=== PATIENT | female | born 1995 | race Hispanic/Latino ===

== ENCOUNTER 2018-05-22 21:02 | Emergency (ER) | payer BC, MEDICAID ==
[2018-05-22] MEDS ORDERED: KETOROLAC TROMETHAMINE 60 MG/2 ML VIAL ONE (22:36)
[2018-05-22] MEDS ORDERED: PHENAZOPYRIDINE HCL 200 MG TABLET ONE (22:36)
[2018-05-22 23:17] LABS: APPEARANCE,URINE Cloudy (CLEAR); BILIRUBIN,URINE Negative (NEGATIVE); COLOR,URINE Dark Yellow (YELLOW); GLUCOSE, URINE (UA) Negative (NEGATIVE); KETONES,URINE Trace mg/dL (NEGATIVE); LEUKOCYTE ESTERASE ,URINE Moderate (NEGATIVE); NITRATE,URINE Negative (NEGATIVE); OCCULT BLOOD,URINE Large (NEGATIVE); PROTEIN,URINE Trace (NEGATIVE)
[2018-05-22 23:23] LABS: HCG,QUAL RESULT NEGATIVE (NEGATIVE)
[2018-05-22 23:27] LABS: BACTERIA,URINE Few /HPF (None Seen); MUCUS,URINE Few LPF (None Seen)
[2018-05-22] MEDS ORDERED: LIDOCAINE HCL MPF 1% 5ML VIAL ONE (23:44)
[2018-05-22] MEDS ORDERED: CEFTRIAXONE SODIUM 1 GM ONE (23:44)
== END 2018-05-23 00:13 | disposition home or self-care (01) ==
LOC: EDH 21:02
DX: N39.0 Urinary tract infection, site not specified (principal)
CPT/HCPCS: 81001; 81025; 87088; 96372 ×2; 99285; J0696; J1885; J3490